=== PATIENT | female | born 1990 | race Caucasian/White ===

== ENCOUNTER 2020-01-08 19:50 | Emergency (ER) | payer OTHER ==
--- NOTE | 2020-01-08 20:55 | ER Document Report ---
ED Medical Screen (RME) - General Chief Complaint: High Blood Pressure Stated Complaint: REPORTS HIGH BLOOD PRESSURE Time Seen by Provider: 01/08/20 20:40 Mode of Arrival: Ambulatory Information source: Patient Notes: 29-year-old female presented to ED for complaint of feeling bad all day. She states she was dizzy and she had to crawl up the stairs. She states when she got to the stair top of the stairs she was very pale lightheaded and sweaty. She states she was also very nauseated so she laid at the top of the stairs. When she felt a little better her took her blood pressure and it was 158/104. She waited a few minutes and then was 149/97. She states she felt a little better so she sat back up became very dizzy again and her blood pressure was 149/95. She states she has a headache and now her chest pain burning to her. She also has a headache. She states she has a past medical history of preeclampsia and her youngest child is 4 years old. She also has a history of hypothyroid fibromyalgia anxiety and depression. She states she has never had chest pain before. She is alert oriented respirations regular nonlabored speaking in full sentences. She states she is a former smoker she rarely drinks maybe twice a years. She states she does use CBD oil for her fibromyalgia. She does not use any illicit drugs. At time of visit blood pressure was 136/86, tem p 98.7, pulse 77, respirations 18, pulse ox 100%. She weighs 65.2 kg and is states she is 5 foot 4 inches tall. I have greeted and performed a rapid initial assessment of this patient. A comprehensive ED assessment and evaluation of the patient, analysis of test results and completion of medical decision making process will be conducted by an additional ED providers. - Related Data Allergies/Adverse Reactions: No Known Allergies Allergy (Unverified 01/08/20 20:46) Past Medical History - Social History Frequency of alcohol use: Occasional Drug Abuse: Marijuana Course - Laboratory Result Diagrams: 01/08/20 21:28 01/08/20 21:28 Laboratory results interpreted by me: 01/08/20 21:28 Hgb 11.2 L Hct 33.6 L MCV 74 L MCH 24.7 L RDW 17.1 H
--- NOTE | 2020-01-08 21:43 | RADIOLOGY REPORT (SQ) ---
CLINICAL INDICATION: Chest pain. TECHNIQUE: PA and lateral views were obtained of the chest COMPARISON: None. FINDINGS: The cardiomediastinal silhouette is top normal. The lungs demonstrate mild diffuse interstitial prominence, presumed chronic. No consolidation. No evidence of effusion or pneumothorax. Visualized bones are unremarkable. . IMPRESSION: Mild presumed chronic diffuse interstitial prominence. No focal airspace consolidation .
[2020-01-08 21:59] LABS: ABSOLUTE EOSINOPHILS # (AUTO) 0.2 10^3/uL (0.0-0.6); ABSOLUTE LYMPHOCYTES (AUTO) 1.2 10^3/uL (0.5-4.7); ABSOLUTE MONOCYTES (AUTO) 0.4 10^3/uL (0.1-1.4); ABSOLUTE NEUT (AUTO) 5.3 10^3/uL (1.7-8.2); APPEARANCE,URINE CLEAR; BASOPHILS % (AUTO) 0.4 % (0-2); BILIRUBIN,URINE NEGATIVE (NEGATIVE); COLOR,URINE STRAW; EOSINOPHILS % (AUTO) 3.3 % (0-6); GLUCOSE, URINE NEGATIVE (NEGATIVE); HEMATOCRIT 33.6 % (36.0-47.0); HEMOGLOBIN 11.2 g/dL (12.0-15.5); KETONES,URINE NEGATIVE (NEGATIVE); LEUKOCYTE ESTERASE,URINE NEGATIVE (NEGATIVE); LYMPHOCYTES % (AUTO) 16.2 % (13-45); MEAN CORPUSCULAR HEMOGLOBIN 24.7 pg (27.0-33.4); MEAN CORPUSCULAR HGB CONC 33.4 g/dL (32.0-36.0); MEAN CORPUSCULAR VOLUME 74 fl (80-97); MONOCYTES % (AUTO) 5.5 % (3-13); NITRITE,URINE NEGATIVE (NEGATIVE); PLATELET COUNT 306 10^3/uL (150-450); PROTEIN,URINE NEGATIVE (NEGATIVE); RED BLOOD COUNT 4.53 10^6/uL (3.72-5.28); RED CELL DISTRIBUTION WIDTH 17.1 % (11.5-14.0); SEGMENTED NEUTROPHILS % (AUTO) 74.6 % (42-78); TOTAL CELLS COUNTED % (AUTO) 100 %; URINE SPECIFIC GRAVITY 1.008; UROBILINOGEN,URINE NEGATIVE mg/dL (<2.0); WHITE BLOOD COUNT 7.1 10^3/uL (4.0-10.5)
[2020-01-08 22:13] LABS: ALBUMIN 4.9 g/dL (3.5-5.0); ALKALINE PHOSPHATASE 56 U/L (38-126); ANION GAP 12 (5-19); ASPARTATE AMINO TRANSFERASE 23 U/L (14-36); BILIRUBIN,DIRECT 0.3 mg/dL (0.0-0.4); BILIRUBIN,TOTAL 0.3 mg/dL (0.2-1.3); BLOOD UREA NITROGEN 12 mg/dL (7-20); CALCIUM 9.7 mg/dL (8.4-10.2); CARBON DIOXIDE 26 mmol/L (22-30); CHLORIDE 103 mmol/L (98-107); CREATINE KINASE 49 U/L (30-135); GLUCOSE 126 mg/dL (75-110); POTASSIUM 4.2 mmol/L (3.6-5.0); TOTAL PROTEIN 8.1 g/dL (6.3-8.2)
--- NOTE | 2020-01-09 02:10 | ER Document Report ---
ED Blood Pressure Problem - General Chief Complaint: Near Syncope Stated Complaint: REPORTS HIGH BLOOD PRESSURE Time Seen by Provider: 01/08/20 20:40 Mode of Arrival: Ambulatory Information source: Patient Notes: ED Medical Screen (Emmanuel santana) - General Chief Complaint: High Blood Pressure Stated Complaint: REPORTS HIGH BLOOD PRESSURE Time Seen by Provider: 01/08/20 20:40 Mode of Arrival: Ambulatory Information source: Patient Notes: 29-year-old female presented to ED for complaint of feeling bad all day. She states she was dizzy and she had to crawl up the stairs. She states when she got to the stair top of the stairs she was very pale lightheaded and sweaty. She states she was also very nauseated so she laid at the top of the stairs. When she felt a little better her took her blood pressure and it was 158/104. She waited a few minutes and then was 149/97. She states she felt a little better so she sat back up became very dizzy again and her blood pressure was 149/95. She states she has a headache and now her chest pain burning to her. She also has a headache. She states she has a past medical history of preeclampsia and her youngest child is 4 years old. She also has a history of hypothyroid fibromyalgia anxiety and depression. She states she has never had chest pain before. She is alert oriented respirations regular nonlabored speaking in full sentences. She states she is a former smoker she rarely drinks maybe twice a years. She states she does use CBD oil for her fibromyalgia. She does not use any illicit drugs. At time of visit blood pressure was 136/86, tem p 98.7, pulse 77, respirations 18, pulse ox 100%. She weighs 65.2 kg and is states she is 5 foot 4 inches tall. MY NOTES 29-year-old female arrives by POV with chief complaint of feeling p oorly all day with dizziness and weakness. 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 Patient denies any coronavirus exposure but does take levothyroxine for a hypothyroidism problem. Patient quit smoking 6 months ago but smoked since she was a teenager. She does take CBD oil for her costochondritis which she was diagnosed with by a rheumatoid doctor in April of the prior year. She was having muscle weakness and was seen by a neurologist initially and then referred to the senior painter with a diagnosis of low vitamin B12, iron poor anemia and costochondritis. Patient has dilated pupils in room and complains of some tightness in left chest but was mainly concerned about her high blood pressure around 1800 hrs. today. Her blood pressure at that time was 158/104. She advises she has never had this before. TRAVEL OUTSIDE OF THE [place] IN LAST 30 DAYS: No - HPI Patient complains to provider of: High blood pressure Onset: This evening Onset/Duration: Sudden, Better Quality of pain: Achy Severity: Mild Pain Level: 1 Problem is: New problem Associated symptoms: Chest pain, Lightheaded, Weakness Similar symptoms previously: Yes Recently seen / treated by doctor: No - Related Data Allergies/Adverse Reactions: No Known Allergies Allergy (Unverified 01/08/20 20:46) Past Medical History - General Information source: Patient - Social History Smoking Status: Former Smoker Cigarette use (# per day): No Chew tobacco use (# tins/day): No Smoking Education Provided: No Frequency of alcohol use: Occasional Drug Abuse: Marijuana Lives with: Family Family History: Reviewed & Not Pertinent Patient has suicidal ideation: No Patient has homicidal ideation: No Review of Systems - Review of Systems Constitutional: See HPI, Weakness EENT: No symptoms reported Cardiovascular: See HPI, Chest pain, Dizziness, Lightheaded Respiratory: No symptoms reported Gastrointestinal: No symptoms reported Genitourinary: No symptoms reported Female Genitourinary: No symptoms reported Musculoskeletal: No symptoms reported Skin: No symptoms reported Hematologic/Lymphatic: No symptoms reported Neurological/Psychological: See HPI, Weakness -: Yes All other systems reviewed and negative Physical Exam - Vital signs Vitals: Temp Pulse Resp BP Pulse Ox 98.7 F 77 18 136/86 H 100 01/08/20 20:57 01/08/20 20:57 01/08/20 20:57 01/08/20 20:57 01/08/20 20:57 Interpretation: Hypertensive - diastolic - General General appearance: Appears well, Alert - HEENT Head: Normocephalic, Atraumatic Eyes: Normal Conjunctiva: Normal Cornea: Normal Extraocular movements intact: Yes Eyelashes: Normal Pupils: PERRL, Dilated Nasal: Normal Mouth/Lips: Normal Mucous membranes: Normal Pharynx: Normal Neck: Normal - Respiratory Respiratory status: No respiratory distress Chest status: Nontender Breath sounds: Normal Chest palpation: Normal - Cardiovascular Rhythm: Regular Heart sounds: Normal auscultation Murmur: No - Abdominal Inspection: Normal Distension: No distension Bowel sounds: Normal Tenderness: Nontender Organomegaly: No organomegaly - Rectal Hemorrhoids: Other - deferred - Genitourinary Bimanuel exam: Other - deferred - Back Back: Normal, Nontender - Extremities General upper extremity: Normal inspection, Nontender, Normal color, Normal ROM, Normal temperature General lower extremity: Normal inspection, Nontender, Normal color, Normal ROM, Normal temperature, Normal weight bearing. No: Luba's sign - Neurological Neuro grossly intact: Yes Cognition: Normal Orientation: AAOx4 [place] Coma Scale Eye Opening: Spontaneous [place] Coma Scale Verbal: Oriented Maureen Coma Scale Motor: Obeys Commands Maureen Coma Scale Total: 15 Speech: Normal Motor strength normal: LUE, RUE, LLE, RLE Sensory: Normal - Psychological Associated symptoms: Normal affect, Normal mood - Skin Skin Temperature: Warm Skin Moisture: Dry Skin Color: Normal Course - Vital Signs Vital signs: Temp Pulse Resp BP Pulse Ox 98.6 F 58 L 18 151/83 H 100 01/08/20 23:08 01/09/20 02:23 01/08/20 23:08 01/09/20 02:23 01/08/20 23:08 - Laboratory Result Diagrams: 01/08/20 21:28 01/08/20 21:28 Laboratory results interpreted by me: 01/08/20 01/08/20 01/08/20 21:28 21:28 21:28 Hgb 11.2 L Hct 33.6 L MCV 74 L MCH 24.7 L RDW 17.1 H Glucose 126 H Magnesium 2.4 H Discharge - Discharge Clinical Impression: Weakness, COVID-19 virus test result unknown, Lung changes on chest x-ray Hypertension Qualifiers: Hypertension type: unspecified Qualified Code(s): I10 - Essential (primary) hypertension Iron (Fe) deficiency anemia Qualifiers: Iron deficiency anemia type: unspecified iron deficiency Qualified Code(s): D50.9 - Iron deficiency anemia, unspecified Disposition: HOME, SELF-CARE Additional Instructions: Follow-up with personal doctor this week; return to ER as needed ;take medicines as directed; encourage fluids; also take daily vitamins with iron if possible with meal.
[2020-01-09 02:27] LABS: FREE T4 (FREE THYROXINE) 1.2 ng/dL (0.78-2.19)
[2020-01-09 02:41] LABS: THYROID STIMULATING HORMONE 2.62 uIU/mL (0.47-4.68)
[2020-01-09 02:53] LABS: A TYPE INFLUENZA AG NEGATIVE (NEGATIVE); B INFLUENZA AG NEGATIVE (NEGATIVE)
[2020-01-09 03:49] VITALS: BP 126/81
--- NOTE | 2020-01-09 08:55 | EKG REPORT ---
SEVERITY:- NORMAL ECG - SINUS RHYTHM : Confirmed by: Milli Smith MD 09-Jan-2020 08:54:56
== END 2020-01-09 03:51 | disposition home or self-care (01) ==
LOC: ER 19:50
DX: R53.1 Weakness (principal); D50.9 Iron deficiency anemia, unspecified; R07.9 Chest pain, unspecified; Z20.828 Contact with and (suspected) exposure to other viral communicable diseases; R91.8 Other nonspecific abnormal finding of lung field; R55 Syncope and collapse
CPT/HCPCS: 93005; 99285; 36415; 87070; 84439; 82550; 83735; 84443; 85025; 87635; 80053; 81001; 84484; 87804; 71046; 93010; C9803